=== PATIENT | female | born 1990 | race Caucasian/White ===

== ENCOUNTER → 2022-05-28 08:31 | Outpatient (BNVA) | payer OTHER, SELFPAY | PROVIDERS: Visit Provider Internal Medicine | DX: S06.0X0A Concussion without loss of consciousness, initial encounter (principal); V89.2XXA Person injured in unspecified motor-vehicle accident, traffic, initial encounter; W22.8XXA Striking against or struck by other objects, initial encounter; M54.50 Low back pain, unspecified | CPT/HCPCS: 99202 ==